=== PATIENT | female | born 1975 | race Caucasian/White ===

== ENCOUNTER → 2017-02-04 | Outpatient (CLI) | payer OTHER ==
--- NOTE | 2017-02-05 14:35 | MM ---
Reason for exam: screening (asymptomatic). Last mammogram was performed 3 years and 10 months ago. Physical Findings: A clinical breast exam by your physician is recommended on an annual basis and results should be correlated with mammographic findings. MG 3D Screening Mammo W/Cad Bilateral CC and MLO view(s) were taken. Prior study comparison: March 29, 2013, bilateral digital screening mammo w/CAD. March 24, 2012, bilateral digital screening mammo w/CAD. There are scattered fibroglandular densities. There is chronic nodularity in the right breast. Developing asymmetry in the left breast middle position at 12 o'clock. This finding is changed when compared with previous exams. ASSESSMENT: Incomplete: need additional imaging evaluation, BI-RAD 0 RECOMMENDATION: Special view mammogram of the left breast. If lesion persists on supplemental views, image directed ultrasound is recommended. [facility] will attempt to contact patient to return for supplemental views and ultrasound if indicated.
== END | disposition home or self-care (01) ==
LOC: RADMAMWWP 13:21
PROVIDERS: ATTEND Internal Medicine
DX: Z12.31 Encounter for screening mammogram for malignant neoplasm of breast (principal)
CPT/HCPCS: 77063; G0202

== ENCOUNTER → 2017-08-05 | Outpatient (CLI) | payer OTHER ==
--- NOTE | 2017-08-06 10:53 | MM ---
Reason for exam: additional evaluation requested from prior study. Last mammogram was performed 6 months ago. History: Took hormonal contraceptives for 6 months. Physical Findings: Nurse did not find any significant physical abnormalities on exam. MG 3D Diag Mammo W/Cad LT CC and MLO view(s) were taken of the left breast. Prior study comparison: February 17, 2017, left breast MG 3d work up w/cad LT. February 04, 2017, bilateral MG 3d screening mammo w/cad. There are scattered fibroglandular densities. Focal asymmetry left middle 12 o'clock, stable from 01/2017. No significant new findings when compared with previous films. These results were verbally communicated with the patient and result sheet given to the patient on 08/05/17. ASSESSMENT: Benign, BI-RAD 2 RECOMMENDATION: Return to routine screening mammogram schedule for both breasts. Back on schedule for January 2018.
== END | disposition home or self-care (01) ==
LOC: RADMAMWWP 15:13
PROVIDERS: ATTEND Internal Medicine
DX: R92.8 Other abnormal and inconclusive findings on diagnostic imaging of breast (principal)
CPT/HCPCS: 77065; G0279

== ENCOUNTER 2018-06-24 05:47 | Emergency (ER) | payer OTHER ==
[2018-06-24 06:14] VITALS: RESP 18; TEMP 98.3
[2018-06-24] MEDS ORDERED: HYDROcodone/APAP 5-325MG 1 EACH TAB PO STA (07:20)
--- NOTE | 2018-06-24 07:30 | ED ---
Fall HPI - General Chief Complaint: Fall Stated Complaint: Fall Source: patient, RN notes reviewed Mode of arrival: ambulatory Limitations: no limitations - History of Present Illness Initial Comments: 42-year-old female presents emergency Department chief complaint of fall, facial injury. Patient states she missed the last step going down the steps and fell into her door. Patient lives nasal and facial pain. No loss of consciousness has mild headache currently. Denies any neck pain or any extremity injury no difficult walking. She did have some mild bleeding of her nose which has resolved. No blood thinners. Patient denies any dizziness, difficult to ambulate in. Patient offers no other complaints. - Related Data Home Medications Medication Instructions Recorded Confirmed Atorvastatin [Lipitor] 80 mg PO HS 06/25/15 06/24/18 Desvenlafaxine Succinate [Pristiq] 100 mg PO HS 06/25/15 06/24/18 Omeprazole 20 mg PO BID 06/25/15 06/24/18 Ibuprofen [Motrin] 800 mg PO Q8H PRN 12/23/16 06/24/18 clonazePAM [KlonoPIN] 1 mg PO HS 12/23/16 06/24/18 Carvedilol 18.75 mg PO BID 06/24/18 06/24/18 Insulin Glargine,Hum.rec.anlog 65 unit SQ HS 06/24/18 06/24/18 [Basaglar Kwikpen U-100] Sacubitril/Valsartan [Entresto 24 1 tab PO BID 06/24/18 06/24/18 mg-26 mg Tablet] Spironolactone 75 mg PO DAILY 06/24/18 06/24/18 sitaGLIPtin PHOS/metFORMIN HCL 1 tab PO BID-W/MEALS 06/24/18 06/24/18 [Janumet 50-500 mg Tablet] Allergies Allergy/AdvReac Type Severity Reaction Status Date / Time codeine AdvReac Nausea & Verified 06/24/18 07:42 Vomiting quetiapine [From Seroquel] AdvReac "SLEEP Verified 06/24/18 07:42 EATING" risperidone [From Risperdal] AdvReac Hallucinati Verified 06/24/18 07:42 ons Review of Systems ROS Statement: Those systems with pertinent positive or pertinent negative responses have been documented in the HPI. ROS Other: All systems not noted in ROS Statement are negative. Past Medical History Past Medical History: Diabetes Mellitus, Hyperlipidemia, Hypertension Additional Past Medical History / Comment(s): Nonischemic cardiomyopathy most likely related to previous illicit drug use and alcohol abuse. History of Any Multi-Drug Resistant Organisms: None Reported Past Surgical History: Section, Cholecystectomy, Orthopedic Surgery, Tubal Ligation Additional Past Surgical History / Comment(s): Novasure Past Psychological History: Bipolar Smoking Status: Former smoker Past Alcohol Use History: None Reported Past Drug Use History: None Reported - Past Family History Father Family Medical History: Diabetes Mellitus Additional Family Medical History / Comment(s): Father in his 60s from renal cancer with metastatic disease. He also had history of schizophrenia and diabetes. Mother Additional Family Medical History / Comment(s): Mother is alive at age 66 with history of diabetes and asthma. Sister(s) Additional Family Medical History / Comment(s): Patient has 2 sisters and one has history of bipolar disorder. Patient does not have any brothers. Son(s) Additional Family Medical History / Comment(s): Patient has 2 sons and one has ADHD and asthma. Patient has one daughter with no major medical problems. General Exam Limitations: no limitations General appearance: alert, in no apparent distress Head exam: Present: atraumatic, normocephalic, normal inspection Eye exam: Present: normal appearance, PERRL, EOMI, periorbital tenderness. Absent: scleral icterus, conjunctival injection, periorbital swelling ENT exam: Present: normal oropharynx, mucous membranes moist, TM's normal bilaterally, normal external ear exam. Absent: normal exam (Swelling of the nostril, mild dry blood noted no active bleeding no septal hematoma) Neck exam: Present: normal inspection, full ROM. Absent: tenderness, meningismus, lymphadenopathy Respiratory exam: Present: normal lung sounds bilaterally. Absent: respiratory distress, wheezes, rales, rhonchi, stridor Cardiovascular Exam: Present: regular rate, normal rhythm, normal heart sounds. Absent: systolic murmur, diastolic murmur, rubs, gallop, clicks GI/Abdominal exam: Present: soft, normal bowel sounds. Absent: distended, tenderness, guarding, rebound, rigid Extremities exam: Present: normal inspection, full ROM, normal capillary refill. Absent: tenderness, pedal edema, joint swelling, calf tenderness Back exam: Present: full ROM. Absent: tenderness, paraspinal tenderness, vertebral tenderness Neurological exam: Present: alert, oriented X3, CN II-XII intact, reflexes normal. Absent: motor sensory deficit Skin exam: Present: warm, dry, intact, normal color. Absent: rash Course Vital Signs 06/24/18 06:11 Temperature 98.3 F Pulse Rate 81 Respiratory 18 Rate Blood Pressure 123/76 O2 Sat by Pulse 98 Oximetry Medical Decision Making - Medical Decision Making 42-year-old female presented for a fall, facial injury CT of the head, facial bones were obtained no acute fracture. Patient will be discharged advised to continue ice Tylenol and Motrin. Return parameters were discussed. Disposition Clinical Impression: Fall, Facial contusion Disposition: HOME SELF-CARE Condition: Stable Instructions (If sedation given, give patient instructions): Facial Contusion (ED) Additional Instructions: Please return to the Emergency Department if symptoms worsen or any other concerns. Is patient prescribed a controlled substance at d/c from ED?: No Referrals: Krystal Duvall MD [Primary Care Provider] - 1-2 days Time of Disposition: 08:21
--- NOTE | 2018-06-24 08:12 | CT ---
EXAMINATION TYPE: CT facial bones wo con DATE OF EXAM: 06/24/2018 COMPARISON: None HISTORY: fall, nose and bilateral cheek pain CT DLP: dose with brain scan mGycm Automated exposure control for dose reduction was used. TECHNIQUE: CT scan of the sinuses is performed without contrast, axial images are obtained, coronal r eformatted images are also reviewed. FINDINGS: There is mild mucosal thickening within the left maxillary sinus. The remaining paranasal s inuses are well aerated. Small left and moderate right maximino bullosa are noted. The maxillary spine appears intact. The nasal bone also appears intact. The bony orbits are intact as well as the visuali zed calvarium and zygomatic processes. No soft tissue hematoma is identified. Mild soft tissue swelli ng and contusion is seen over the inferior nasal bridge. Extraconal muscles and orbits are symmetric and unremarkable. IMPRESSION: No evidence of facial bone fracture. Mild soft tissue contusion over the inferior nasal b ridge.
--- NOTE | 2018-06-24 08:13 | CT ---
EXAMINATION TYPE: CT brain wo con DATE OF EXAM: 06/24/2018 COMPARISON: 03/10/2013 HISTORY: 42-year-old female Nose and bilateral cheek pain, fall TECHNIQUE: Examination was done in axial plane without intravenous contrast. Coronal and sagittal r econstructions performed. CT DLP: 964.9 mGycm Automated exposure control for dose reduction was used. FINDINGS: Mild calvarial artifacts. Allowing for this limitation, there is no evidence of acute intracranial h emorrhage, acute ischemic changes, mass, mass-effect, or extra-axial fluid collection. There is no e ffacement of cerebral sulci or basal subarachnoid cisterns. There is no hydrocephalus. There is no midline shift. López-white matter distinction is preserved. Trace mucosal thickening left maxillary sinus. Mastoid air cells well pneumatized. Facial bones repor manpreet separately. No calvarial fracture. IMPRESSION: No acute intracranial abnormality seen. Facial bones reported separately.
[2018-06-24 08:48] VITALS: BP 131/77; PULSE 78
== END 2018-06-24 08:45 | disposition home or self-care (01) ==
LOC: EC 05:47
DX: S00.83XA Contusion of other part of head, initial encounter (principal); E11.9 Type 2 diabetes mellitus without complications; E78.5 Hyperlipidemia, unspecified; I10 Essential (primary) hypertension; F31.9 Bipolar disorder, unspecified; Z87.891 Personal history of nicotine dependence; Z79.4 Long term (current) use of insulin; Z79.899 Other long term (current) drug therapy; Z88.5 Allergy status to narcotic agent; Z88.8 Allergy status to other drugs, medicaments and biological substances; W10.9XXA Fall (on) (from) unspecified stairs and steps, initial encounter; Y92.009 Unspecified place in unspecified non-institutional (private) residence as the place of occurrence of the external cause
CPT/HCPCS: 70450; 70486; 99283

== ENCOUNTER → 2018-10-22 | Outpatient (CLI) | payer OTHER ==
--- NOTE | 2018-10-22 14:32 | US ---
EXAMINATION TYPE: US pelvic complete DATE OF EXAM: 10/22/2018 COMPARISON: US 04/12/2015 CLINICAL HISTORY: N92.0 Menorrhagia. History of ablasion 2016 TECHNIQUE: Transvaginal (TV) and Transabdominal (TA) . Transabdominal sonographic images of the pel vis were acquired. Transvaginal sonographic images were medically necessary to better assess the fol lowing anatomy: all Date of LMP: 09/27/2018 EXAM MEASUREMENTS: Uterus: 9.2 x 5.3 x 4.8 cm Endometrial Stripe: 0.2 cm Right Ovary: 1.9 x 1.7 x1.1 cm Left Ovary: 1.3 x 1.2 x 1.2 cm 1. Uterus: Anteverted Heterogeneous texture. Nabothian cyst = 0.5 cm 2. Endometrium: wnl 3. Right Ovary: wnl 4. Left Ovary: wnl 5. Bilateral Adnexa: wnl 6. Posterior cul-de-sac: wnl IMPRESSION: Nonspecific heterogenous echotexture of the uterine myometrium. Otherwise unremarkable study.
== END | disposition home or self-care (01) ==
LOC: RADUSWWP 12:09
PROVIDERS: ATTEND Obstetrics & Gynecology
DX: N92.0 Excessive and frequent menstruation with regular cycle (principal)
CPT/HCPCS: 76830; 76856

== ENCOUNTER 2018-10-29 09:07 | Inpatient (IN) | payer OTHER ==
[2018-10-29] MEDS ORDERED: ASPIRIN 81 MG PO STA (09:25)
[2018-10-29] MEDS ORDERED: NITROGLYCERIN SL TABS 0.4 MG TAB SUBLINGUAL STA (09:25)
[2018-10-29 09:38] LABS: Basophils % (A) 0 %; Eosinophils # (A) 0.2 k/uL (0-0.7); Eosinophils % (A) 3 %; HCT 40.3 % (34.0-46.0); HGB 13.7 gm/dL (11.4-16.0); Lymphocytes # (A) 2.5 k/uL (1.0-4.8); Lymphocytes % (A) 33 %; MCH 30.9 pg (25.0-35.0); MCV 90.8 fL (80.0-100.0); Mean Platelet Volume 7.9; Monocytes # (A) 0.3 k/uL (0-1.0); Monocytes % (A) 4 %; Neutrophils # (A) 4.5 k/uL (1.3-7.7); Neutrophils % (A) 58 %; Platelet Count 223 k/uL (150-450); RBC 4.44 m/uL (3.80-5.40); RDW 12.8 % (11.5-15.5); WBC 7.7 k/uL (3.8-10.6)
[2018-10-29 09:50] LABS: African American GFR (CKD) >90 (>60 ml/min/1.73 sqM); Anion Gap 12 mmol/L; Blood Urea Nitrogen 18 mg/dL (7-17); Calcium 9.9 mg/dL (8.4-10.2); Carbon Dioxide 24 mmol/L (22-30); Chloride 105 mmol/L (98-107); Creatine Kinase 93 U/L (30-135); Glucose 88 mg/dL (74-99); Lipase 225 U/L (23-300); Sodium 141 mmol/L (137-145); Total Bilirubin 0.8 mg/dL (0.2-1.3)
[2018-10-29 09:54] LABS: Potassium 5.1 mmol/L (3.5-5.1)
[2018-10-29 09:55] LABS: ALT 33 U/L (9-52); AST 38 U/L (14-36); Albumin 4.7 g/dL (3.5-5.0); Alkaline Phosphatase 61 U/L (38-126); Magnesium 1.4 mg/dL (1.6-2.3); Total Protein 7.9 g/dL (6.3-8.2)
--- NOTE | 2018-10-29 10:01 | XR ---
EXAMINATION TYPE: XR chest 2V DATE OF EXAM: 10/29/2018 COMPARISON: 12/23/2016 TECHNIQUE: PA and lateral views submitted. HISTORY: Chest pain FINDINGS: The lungs are clear and there is no pneumothorax, pleural effusion, or focal pneumonia. Hypertrophic change of the spine. Surgical clips in the abdomen. IMPRESSION: 1. No acute process.
--- NOTE | 2018-10-29 10:14 | ED ---
Chest Pain HPI - General Chief Complaint: Chest Pain Stated Complaint: chest pressure/pounding Time Seen by Provider: 10/29/18 09:17 Source: patient, RN notes reviewed Mode of arrival: ambulatory Limitations: no limitations - History of Present Illness Initial Comments: Is a 42-year-old female with a history of cardiomyopathy who presents with complaints of left-sided chest heaviness. She states the heaviness is also associated with fatigue [id number] in severity. Associated with any cough fevers chills nausea vomiting sweats or other symptoms. She does have a history of hypertension as well as type 2 diabetes. Also high cholesterol. MD Complaint: chest pain - Related Data Home Medications Medication Instructions Recorded Confirmed Atorvastatin [Lipitor] 80 mg PO HS 06/25/15 10/29/18 Desvenlafaxine Succinate [Pristiq] 100 mg PO HS 06/25/15 10/29/18 Omeprazole 20 mg PO BID 06/25/15 10/29/18 clonazePAM [KlonoPIN] 1 mg PO HS 12/23/16 10/29/18 Carvedilol 18.75 mg PO BID 06/24/18 10/29/18 Insulin Glargine,Hum.rec.anlog 65 unit SQ HS 06/24/18 10/29/18 [Basaglar Kwikpen U-100] Sacubitril/Valsartan [Entresto 24 1 tab PO BID 06/24/18 10/29/18 mg-26 mg Tablet] Spironolactone 75 mg PO DAILY 06/24/18 10/29/18 sitaGLIPtin PHOS/metFORMIN HCL 1 tab PO BID-W/MEALS 06/24/18 10/29/18 [Janumet 50-500 mg Tablet] Cholecalciferol [Vitamin D3 (25 5,000 unit PO DAILY 10/29/18 10/29/18 Mcg = 1000 Iu)] Magnesium Oxide [Mag-Ox] 400 mg PO DAILY 10/29/18 10/29/18 Melatonin 5 mg PO HS 10/29/18 10/29/18 Allergies Allergy/AdvReac Type Severity Reaction Status Date / Time codeine AdvReac Nausea & Verified 10/29/18 09:45 Vomiting quetiapine [From Seroquel] AdvReac "SLEEP Verified 10/29/18 09:45 EATING" risperidone [From Risperdal] AdvReac Hallucinati Verified 10/29/18 09:45 ons Review of Systems ROS Statement: Those systems with pertinent positive or pertinent negative responses have been documented in the HPI. ROS Other: All systems not noted in ROS Statement are negative. EKG Findings - EKG Results: EKG: interpreted by SAVANNA, sinus rhythm (Sinus rhythm rate is 72 ND interval 238 QRS duration 118 QT since QTC 414/453 for prescription AV block frequent unifocal PVCs left ice deviation and LVH) Past Medical History Past Medical History: Diabetes Mellitus, Hyperlipidemia, Hypertension Additional Past Medical History / Comment(s): Nonischemic cardiomyopathy most likely related to previous illicit drug use and alcohol abuse. History of Any Multi-Drug Resistant Organisms: None Reported Past Surgical History: Section, Cholecystectomy, Orthopedic Surgery, Tubal Ligation, Uterine Ablation Additional Past Surgical History / Comment(s): Novasure Past Psychological History: Bipolar Smoking Status: Former smoker Past Alcohol Use History: None Reported Past Drug Use History: None Reported, Cocaine, Marijuana, Opiates, Prescription Drug Abuse - Past Family History Father Family Medical History: Diabetes Mellitus Additional Family Medical History / Comment(s): Father in his 60s from renal cancer with metastatic disease. He also had history of schizophrenia and diabetes. Mother Additional Family Medical History / Comment(s): Mother is alive at age 66 with history of diabetes and asthma. Sister(s) Additional Family Medical History / Comment(s): Patient has 2 sisters and one has history of bipolar disorder. Patient does not have any brothers. Son(s) Additional Family Medical History / Comment(s): Patient has 2 sons and one has ADHD and asthma. Patient has one daughter with no major medical problems. General Exam - General Exam Comments Initial Comments: This is a well-developed well-nourished awake alert oriented 3 female Limitations: no limitations General appearance: alert, in no apparent distress Head exam: Present: atraumatic, normocephalic, normal inspection Eye exam: Present: normal appearance, PERRL, EOMI. Absent: scleral icterus, conjunctival injection, periorbital swelling ENT exam: Present: normal exam, mucous membranes moist Neck exam: Present: normal inspection, full ROM, other (No stridor JVD or bruits). Absent: tenderness, meningismus, lymphadenopathy Respiratory exam: Present: normal lung sounds bilaterally. Absent: respiratory distress, wheezes, rales, rhonchi, stridor Cardiovascular Exam: Present: regular rate, normal rhythm, normal heart sounds. Absent: systolic murmur, diastolic murmur, rubs, gallop, clicks GI/Abdominal exam: Present: soft, normal bowel sounds. Absent: distended, tenderness, guarding, rebound, rigid Extremities exam: Present: normal inspection, full ROM, normal capillary refill. Absent: tenderness, pedal edema, joint swelling, calf tenderness Back exam: Present: normal inspection Neurological exam: Present: alert, oriented X3, CN II-XII intact Psychiatric exam: Present: normal affect, normal mood Skin exam: Present: warm, dry, intact, normal color. Absent: rash Course Vital Signs 10/29/18 10/29/18 10/29/18 09:10 09:30 10:00 Temperature 97.6 F Pulse Rate 75 80 80 Respiratory 18 21 24 Rate Blood Pressure 134/85 110/82 105/63 O2 Sat by Pulse 97 96 97 Oximetry 10/29/18 10/29/18 10/29/18 10:30 11:00 11:30 Temperature Pulse Rate 71 74 75 Respiratory 13 16 24 Rate Blood Pressure 98/52 101/64 92/58 O2 Sat by Pulse 99 100 100 Oximetry - Reevaluation(s) Reevaluation #1: 10/29/18 11:58 Patient states she did not get much relief from nitroglycerin at this point. I did review the previous cath report. Patient does demonstrate unifocal PVCs and hypomagnesemia. Due to the presentation she'll be admitted with cardiology consultation. Chest Pain MDM - MDM I did review the imaging and report no acute findings. I did discuss case with . Patient will be admitted for evaluation. Critical Care Time Critical Care Time: Yes Critical Care Time: 31 minutes of critical care time which includesinitial history physical labs x- rays multiple reevaluation patient responsive therapy discuss with the patient regarding findings discussed with the admitting physician review of old charting and documentation of the above Disposition Clinical Impression: Chest pain, PVCs (premature ventricular contractions), Hypomagnesemia syndrome Disposition: ADMITTED IP TO THIS [facility] Condition: Stable [facility]errals: [facility] [Primary Care Provider] - 1-2 days
[2018-10-29 10:45] LABS: D-Dimer 0.2 mg/L FEU (<0.60); INR 0.9 (<1.2); Partial Thromboplastin Time 24.2 sec (22.0-30.0); Prothrombin Time 9.8 sec (9.0-12.0)
[2018-10-29] MEDS ORDERED: MAGNESIUM SULFATE-D5W PMX 1 GM in DEXTROSE/WATER 1 100ML.BAG IVPB ONE (11:22)
[2018-10-29] MEDS ORDERED: NITROGLYCERIN SL TABS 0.4 MG TAB SUBLINGUAL PRN (12:01)
[2018-10-29] MEDS ORDERED: HEPARIN SODIUM,PORCINE 5,000 UNIT/ML 1 ML VIAL IV ONE (12:01)
[2018-10-29] MEDS: HEPARIN SOD,PORK IN 0.45% NACL 25,000 UNIT in 0.45% NACL 1 250ML.BAG IV SCH (12:26)
[2018-10-29] MEDS: INSULIN ASPART (NovoLOG) 100 UNIT/ML VIAL SQ SCH ×3 (12:53→21:42)
[2018-10-29 13:01] LABS: Glucose,Whole Blood 76 mg/dL (75-99)
--- NOTE | 2018-10-29 13:46 | P.HPIM ---
History of Present Illness H&P Date: 10/29/18 This is a 42-year-old white female who reported emergency because of chest pounding. She has been feeling fatigued and tired. She denies chest pain. Her symptoms woke her up from sleep. Her symptoms have been intermittent. This has happened to her about a year ago when she was found to have cardiomyopathy. She denies subjective fever or chills, she reports no dizziness or loss of consciousness. She denies excessive use of caffeine or alcohol. Review of Systems 10 systems reviewed pertinent positive and negative findings as in HPI Past Medical History Past Medical History: Diabetes Mellitus, Hyperlipidemia, Hypertension Additional Past Medical History / Comment(s): Nonischemic cardiomyopathy most likely related to previous illicit drug use and alcohol abuse. History of Any Multi-Drug Resistant Organisms: None Reported Past Surgical History: Section, Cholecystectomy, Orthopedic Surgery, Tubal Ligation, Uterine Ablation Additional Past Surgical History / Comment(s): Neris Past Psychological History: Bipolar Smoking Status: Former smoker Past Alcohol Use History: None Reported Past Drug Use History: None Reported, Cocaine, Marijuana, Opiates, Prescription Drug Abuse - Past Family History Father Family Medical History: Diabetes Mellitus Additional Family Medical History / Comment(s): Father in his 60s from dolly l cancer with metastatic disease. He also had history of schizophrenia and diabetes. Mother Additional Family Medical History / Comment(s): Mother is alive at age 66 with history of diabetes and asthma. Sister(s) Additional Family Medical History / Comment(s): Patient has 2 sisters and one has history of bipolar disorder. Patient does not have any brothers. Son(s) Additional Family Medical History / Comment(s): Patient has 2 sons and one has ADHD and asthma. Patient has one daughter with no major medical problems. Medications and Allergies Home Medications Medication Instructions Recorded Confirmed Type Atorvastatin [Lipitor] 80 mg PO HS 06/25/15 10/29/18 History Desvenlafaxine Succinate [Pristiq] 100 mg PO HS 06/25/15 10/29/18 History Omeprazole 20 mg PO BID 06/25/15 10/29/18 History clonazePAM [KlonoPIN] 1 mg PO HS 12/23/16 10/29/18 History Carvedilol 18.75 mg PO BID 06/24/18 10/29/18 History Insulin Glargine,Hum.rec.anlog 65 unit SQ HS 06/24/18 10/29/18 History [Basaglar Kwmadhavipen U-100] Sacubitril/Valsartan [Entresto 24 1 tab PO BID 06/24/18 10/29/18 History mg-26 mg Tablet] Spironolactone 75 mg PO DAILY 06/24/18 10/29/18 History sitaGLIPtin PHOS/metFORMIN HCL 1 tab PO BID-W/MEALS 06/24/18 10/29/18 History [Janumet 50-500 mg Tablet] Cholecalciferol [Vitamin D3 (25 5,000 unit PO DAILY 10/29/18 10/29/18 History Mcg = 1000 Iu)] Magnesium Oxide [Mag-Ox] 400 mg PO DAILY 10/29/18 10/29/18 History Melatonin 5 mg PO HS 10/29/18 10/29/18 History Allergies Allergy/AdvReac Type Severity Reaction Status Date / Time codeine AdvReac Nausea & Verified 10/29/18 09:45 Vomiting quetiapine [From Seroquel] AdvReac "SLEEP Verified 10/29/18 09:45 EATING" risperidone [From Risperdal] AdvReac Hallucinati Verified 10/29/18 09:45 ons Physical Exam Vitals: Vital Signs Temp Pulse Resp BP Pulse Ox 10/29/18 12:30 71 10 L 97/54 98 10/29/18 11:30 75 24 92/58 100 10/29/18 11:00 74 16 101/64 100 10/29/18 10:30 71 13 98/52 99 10/29/18 10:00 80 24 105/63 97 10/29/18 09:30 80 21 110/82 96 10/29/18 09:10 97.6 F 75 18 134/85 97 Intake and Output 10/28/18 10/29/18 10/29/18 22:59 06:59 14:59 Other: Weight 117.934 kg Constitutional: No acute distress, conversant, pleasant obese Eyes: Anicteric sclerae, moist conjunctiva, no lid-lag, PERRLA ENMT: NC/AT,Oropharynx clear, no erythema, exudates Neck:Supple, FROM, no JVD, No carotid bruits; No thyromegaly Lungs: Clear to auscultation, Clear to percussion, Normal respiratory effort, no accessory muscle use Cardiovascular: Heart regular in rate and rhythm, No murmurs, gallops, or rubs no peripheral edema Abdominal: Soft Nontender, nom distended, no guarding, no rebound or rigidity, Normoactive bowel sounds No hepatomegaly, No splenomegaly, No palpable mass No abdominal wall hernia noted Skin: Normal temperature, tone, texture, turgor, No induration No subcutaneous nodules, No rash, lesions, No ulcers Extremities:No digital cyanosis No clubbing, Pedal pulses intact and symmetrical Radial pulses intact and symmetrical Normal gait and station, No calf tenderness Psychiatric: Alert and oriented to person, place and time, Appropriate affect Intact judgement Neuro: Muscles Strength 5/5 in all 4 extremities, Sensation to light touch grossly present throughout, Cranial nerves II-XII grossly intact. No focal sensory deficits Results CBC & Chem 7: 10/29/18 09:30 10/29/18 09:30 Labs: Abnormal Lab Results - Last 24 Hours (Table) 10/29/18 Range/Units 09:30 BUN 18 H (7-17) mg/dL Magnesium 1.4 L (1.6-2.3) mg/dL AST 38 H (14-36) U/L Assessment and Plan Plan: 1. PVCs: Telemetry, cardiology consultation, continue to check cardiac enzymes, negative d-dimer. 2. Hypomagnesemia, replace as indicated 3. Congestive heart failure with ischemic cardiomyopathy, chronic systolic ejection fraction 35%: Continue on Aldactone continue aspirin and Lipitor and Coreg. 4. Diabetes type 2 with hyperglycemia: Placed on insulin sliding scale 5. GERD without esophagitis: Continue Protonix 6. Obesity, morbid: BMI 43.3 7. Hyperlipidemia: Continue statin 8. Anxiety: Continue Klonopin 9. Depression: Continue Pristiq 10. DVT prophylaxis Admitted under observation
[2018-10-29 13:57] VITALS: BMI 43.2
[2018-10-29 16:29] LABS: Glucose,Whole Blood 143 mg/dL (75-99)
[2018-10-29] MEDS: PANTOPRAZOLE 40 MG TABLET PO SCH (17:20)
[2018-10-29] MEDS: CARVEDILOL 12.5 MG TAB PO SCH (17:20)
[2018-10-29] MEDS: NITROGLYCERIN OINT 1 INCH/GM PACKET TOPICAL SCH (17:20)
[2018-10-29] MEDS ORDERED: metFORMIN 500 MG TAB PO SCH (17:30)
[2018-10-29] MEDS ORDERED: NON-FORMULARY DRUG (Sitagliptin Phos/Metformin Hcl [Janumet 50-500 Mg Tablet] 1 TAB) PO SCH (17:30)
[2018-10-29 20:54] VITALS: RESP 16
[2018-10-29] MEDS ORDERED: INSULIN DETEMIR (LEVEMIR) 100 UNIT/ML SYR SQ SCH (21:00)
[2018-10-29] MEDS ORDERED: clonazePAM 1 MG TAB PO SCH (21:00)
[2018-10-29] MEDS ORDERED: MELATONIN 5 MG TABLET PO SCH (21:00)
[2018-10-29] MEDS ORDERED: ATORVASTATIN 80 MG TAB PO SCH (21:00)
[2018-10-29] MEDS ORDERED: DESVENLAFAXINE SUCCINATE 50 MG TAB.ER.24H PO SCH (21:00)
[2018-10-29 21:06] LABS: Glucose,Whole Blood 117 mg/dL (75-99)
[2018-10-29] MEDS: SACUBITRIL/VALSARTAN 24 MG-26 MG TABLET PO SCH (21:42)
[2018-10-30] MEDS: NITROGLYCERIN OINT 1 INCH/GM PACKET TOPICAL SCH ×2 (00:23→07:00)
[2018-10-30 04:22] LABS: Glucose,Whole Blood 132 mg/dL (75-99)
[2018-10-30] MEDS: HEPARIN SOD,PORK IN 0.45% NACL 25,000 UNIT in 0.45% NACL 1 250ML.BAG IV SCH (05:43)
[2018-10-30 06:26] LABS: Basophils % (A) 1 %; Eosinophils # (A) 0.2 k/uL (0-0.7); Eosinophils % (A) 3 %; HCT 37.2 % (34.0-46.0); HGB 12.4 gm/dL (11.4-16.0); Lymphocytes # (A) 2.3 k/uL (1.0-4.8); Lymphocytes % (A) 38 %; MCH 30.6 pg (25.0-35.0); MCHC 33.5 g/dL (31.0-37.0); MCV 91.4 fL (80.0-100.0); Mean Platelet Volume 7.6; Monocytes # (A) 0.3 k/uL (0-1.0); Monocytes % (A) 5 %; Neutrophils # (A) 3.1 k/uL (1.3-7.7); Neutrophils % (A) 51 %; Platelet Count 190 k/uL (150-450); RBC 4.07 m/uL (3.80-5.40); RDW 13.7 % (11.5-15.5); WBC 6.1 k/uL (3.8-10.6)
[2018-10-30 06:50] LABS: Glucose,Whole Blood 105 mg/dL (75-99)
[2018-10-30] MEDS: PANTOPRAZOLE 40 MG TABLET PO SCH (07:00)
[2018-10-30] MEDS: INSULIN ASPART (NovoLOG) 100 UNIT/ML VIAL SQ SCH ×2 (07:00→11:43)
[2018-10-30] MEDS: CARVEDILOL 12.5 MG TAB PO SCH (07:00)
[2018-10-30 08:03] LABS: ALT 38 U/L (9-52); AST 28 U/L (14-36); African American GFR (CKD) >90 (>60 ml/min/1.73 sqM); Albumin 4.1 g/dL (3.5-5.0); Alkaline Phosphatase 70 U/L (38-126); Anion Gap 10 mmol/L; Blood Urea Nitrogen 16 mg/dL (7-17); Calcium 8.9 mg/dL (8.4-10.2); Carbon Dioxide 27 mmol/L (22-30); Chloride 104 mmol/L (98-107); Cholesterol 165 mg/dL (<200); Glucose 125 mg/dL (74-99); HDL Cholesterol 65 mg/dL (40-60); LDL Cholesterol,Calculated 60 mg/dL (0-99); Potassium 4.2 mmol/L (3.5-5.1); Sodium 141 mmol/L (137-145); Total Bilirubin 0.6 mg/dL (0.2-1.3); Total Protein 6.8 g/dL (6.3-8.2); Triglycerides 200 mg/dL (<150)
[2018-10-30] MEDS ORDERED: MAGNESIUM OXIDE 400 MG TAB PO SCH (09:00)
[2018-10-30] MEDS ORDERED: CHOLECALCIFEROL 1,000 UNIT TAB PO SCH (09:00)
[2018-10-30] MEDS ORDERED: SPIRONOLACTONE 25 MG TAB PO SCH (09:00)
[2018-10-30] MEDS ORDERED: ASPIRIN 325 MG TAB PO SCH (09:00)
[2018-10-30] MEDS ORDERED: LINAGLIPTIN 5 MG TABLET PO SCH (09:00)
--- NOTE | 2018-10-30 09:29 | P.CRDCN ---
History of Present Illness Consult date: 10/30/18 History of present illness: This is a 42-year-old female patient of Dr. Hennessy in with complex medical history including nonischemic cardiomyopathy secondary to prior drug abuse, diabetes, hypertension, dyslipidemia and frequent ventricular ectopy. The patient denies any recent medication changes and has been taking her medication and instructed. She states she has been doing quite well and is active including working and mowing lawn and etc. 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 Patient does state that she had fatigue prior to this happening and thought it was related to low magnesium. Patient does relate that she has had a uterine ablation in 2016 and has had some unusual bleeding lasted 15 days. She did have follow-up with Dr. Lim and ultrasound of the pelvic has been done and she does not know results yet. Patient is currently free of chest pain. She does not know what relieved her pain. Systolic blood pressure this morning is at 80 and Nitropaste and Entresto held. secured entrance monitor has been a sinus rhythm with first-degree block through the night. Patient is currently on a heparin drip. She states that her systolic blood pressure normally runs 90-110. She is complaining of a slight headache. EKG reveals sinus mechanism with PVCs and inverted T wave. Echocardiogram from 2017 reveals EF of 35-40%, trace mitral regurgitation, trace tricuspid regurgitation, no pulmonary hypertension, mild left concentric left ventricular hypertrophy, aortic valve and mitral valve mildly thickened, technically difficult study. Laboratory studies: CBC unremarkable, blood sugar 125, triglycerides 200, cholesterol 165, LDL 60, HDL 65. Heart catheterization done December [address] Otero revealed normal coronary arteries. Review of Systems Constitutional: Denies chills. Denies fever. Reports generalized fatigue Eyes: Denies blurred vision. Denies pain. Ears, nose, mouth and throat: Denies headache. Denies sore throat. Cardiovascular: Reports chest pain. Denies shortness of breath. Respiratory: Denies cough. Gastrointestinal: Denies abdominal pain. Denies diarrhea. Denies nausea. Denies vomiting. Musculoskeletal: Denies myalgias. Integumentary: Denies pruritus. Denies rash. Neurological: Denies numbness. Denies weakness. Psychiatric: Denies anxiety. Denies depression. Endocrine: Denies fatigue. Denies weight change. Genitourinary: Denies burning, hematuria, frequency of urination. Hematological: Reports recent abnormal vaginal bleeding. Vital signs: Afebrile, blood pressure 80 systolic, heart rate 66, pulse ox 94% on room air. General: The patient is awake and alert, in no distress, and does not appear acutely ill. Skin: Skin is warm and dry and no rashes or lesions are noted. Eye: Pupils are equal, round and reactive to light, extra-ocular movements are intact; there is normal conjunctiva bilaterally. Ears, nose, mouth and throat: There are moist mucous membranes and no oral lesions. Neck: The neck is supple, there is no tenderness or JVD. Cardiovascular: There is a regular rate and rhythm. No murmur, rub or gallop is appreciated. Respiratory: Lungs are clear to auscultation, respirations are non-labored, breath sounds are equal. Gastrointestinal: Soft, non-distended, non-tender abdomen without masses or organomegaly noted. There is no rebound or guarding present. Bowel sounds are unremarkable. Musculoskeletal: There is no pedal edema. There is no calf tenderness or swelling. Vascular: Dorsalis pedis +2 bilaterally Neurological: CN II-XII intact. There are no obvious motor or sensory deficits. Speech is normal. Psychiatric: Cooperative, appropriate mood & affect, normal judgment. Assessment: Chest pain with normal troponins. Acute coronary syndrome ruled out Nonischemic cardiomyopathy Diabetes mellitus type 2 insulin requiring Hypotensive Plan: Heparin drip will be discontinued Discontinued Nitropaste Continue atorvastatin 80 mg at bedtime Coreg decreased to 12.5 mg twice daily, continue Entresto 24/26 mg twice daily, decrease Aldactone 25 mg daily Obtain 2-D echocardiogram and Doppler to assess cardiac structure and function Patient is cleared for discharge home and follow-up in the office in one week Thank you kindly for this consultation. Nurse practitioner note has been reviewed, I agree with documented findings and plan of care. Patient was seen and examined. Past Medical History Past Medical History: Diabetes Mellitus, GERD/Reflux, Hyperlipidemia, Hypertension Additional Past Medical History / Comment(s): Nonischemic cardiomyopathy most likely related to previous illicit drug use and alcohol abuse, IDDM type II, neuropathy bilateral feet, bilateral carpal tunnel syndrome, IBS. History of Any Multi-Drug Resistant Organisms: None Reported Past Surgical History: Adenoidectomy, Section, Cholecystectomy, Orthopedic Surgery, Tubal Ligation, Uterine Ablation Additional Past Surgical History / Comment(s): Bilateral myringotomy/tubes, colonoscopy. Past Anesthesia/Blood Transfusion Reactions: No Reported Reaction Smoking Status: Former smoker - Past Family History Father Family Medical History: Diabetes Mellitus Additional Family Medical History / Comment(s): Father in his 60s from renal cancer with metastatic disease. He also had history of mental health disease and diabetes. Mother Family Medical History: Asthma, Diabetes Mellitus Additional Family Medical History / Comment(s): Mother is living Sister(s) Additional Family Medical History / Comment(s): Patient has 2 sisters and one has history of bipolar disorder. Patient does not have any brothers. Son(s) Additional Family Medical History / Comment(s): Patient has 2 sons and one has ADHD and asthma. Patient has one daughter with no major medical problems. Medications and Allergies Home Medications Medication Instructions Recorded Confirmed Type Atorvastatin [Lipitor] 80 mg PO HS 06/25/15 10/29/18 History Desvenlafaxine Succinate [Pristiq] 100 mg PO HS 06/25/15 10/29/18 History Omeprazole 20 mg PO BID 06/25/15 10/29/18 History clonazePAM [KlonoPIN] 1 mg PO HS 12/23/16 10/29/18 History Insulin Glargine,Hum.rec.anlog 65 unit SQ HS 06/24/18 10/29/18 History [Liz Hudson U-100] Sacubitril/Valsartan [Entresto 24 1 tab PO BID 06/24/18 10/29/18 History mg-26 mg Tablet] sitaGLIPtin PHOS/metFORMIN HCL 1 tab PO BID-W/MEALS 06/24/18 10/29/18 History [Janumet 50-500 mg Tablet] Cholecalciferol [Vitamin D3 (25 5,000 unit PO DAILY 10/29/18 10/29/18 History Mcg = 1000 Iu)] Magnesium Oxide [Mag-Ox] 400 mg PO DAILY 10/29/18 10/29/18 History Melatonin 5 mg PO HS 10/29/18 10/29/18 History Carvedilol 12.5 mg PO BID #0 10/30/18 10/29/18 Rx Spironolactone 25 mg PO DAILY #0 10/30/18 10/29/18 Rx Allergies Allergy/AdvReac Type Severity Reaction Status Date / Time codeine AdvReac Nausea & Verified 10/29/18 09:45 Vomiting quetiapine [From Seroquel] AdvReac "SLEEP Verified 10/29/18 09:45 EATING" risperidone [From Risperdal] AdvReac Hallucinati Verified 10/29/18 09:45 ons Physical Exam Vitals: Vital Signs Temp Pulse Pulse Resp BP BP BP 10/30/18 07:02 66 102/61 10/30/18 04:10 98.1 F 78 16 102/59 10/30/18 00:20 98.1 F 77 16 98/53 10/29/18 20:20 98.1 F 78 16 111/77 10/29/18 15:10 97.0 F L 70 104/65 10/29/18 14:00 73 18 82/55 10/29/18 13:30 76 26 H 100/67 10/29/18 13:01 79 25 H 87/56 10/29/18 12:30 71 10 L 97/54 10/29/18 11:30 75 24 92/58 10/29/18 11:00 74 16 101/64 10/29/18 10:30 71 13 98/52 10/29/18 10:00 80 24 105/63 10/29/18 09:30 80 21 110/82 10/29/18 09:10 97.6 F 75 18 134/85 Pulse Ox 10/30/18 07:02 10/30/18 04:10 94 L 10/30/18 00:20 97 10/29/18 20:20 97 10/29/18 15:10 99 10/29/18 14:00 98 10/29/18 13:30 98 10/29/18 13:01 97 10/29/18 12:30 98 10/29/18 11:30 100 10/29/18 11:00 100 10/29/18 10:30 99 10/29/18 10:00 97 10/29/18 09:30 96 10/29/18 09:10 97 Intake and Output 07/12/19 07/13/19 07/13/19 22:59 06:59 14:59 Intake Total 240 244.594 Balance 240 244.594 Intake: Intake, IV Titration 244.594 Amount Heparin Sod,Pork in 0.45% 244.594 NaCl 25,000 unit In 0.45 % NaCl 1 250ml.bag @ 12 UNITS/KG/HR 14.152 mls/hr IV .[id number] [facility] Rx#: [id number] Oral 240 Other: Voiding Method Toilet # Voids 1 1 Weight 117.8 kg Results 10/30/18 05:36 10/30/18 05:36 Cardiac Enzymes 10/29/18 10/29/18 10/29/18 Range/Units 09:30 09:30 16:03 AST 38 H (14-36) U/L Troponin I <0.012 <0.012 (0.000-0.034) ng/mL 10/29/18 10/30/18 Range/Units 21:17 05:36 AST 28 (14-36) U/L Troponin I <0.012 (0.000-0.034) ng/mL Coagulation 10/29/18 10/29/18 10/30/18 Range/Units 10:21 22:19 05:29 PT 9.8 (9.0-12.0) sec APTT 24.2 55.7 H 69.7 H (22.0-30.0) sec Lipids 10/30/18 Range/Units 05:36 Triglycerides 200 H (<150) mg/dL Cholesterol 165 (<200) mg/dL HDL Cholesterol 65 H (40-60) mg/dL CBC 10/29/18 10/30/18 Range/Units 09:30 05:36 WBC 7.7 6.1 (3.8-10.6) k/uL RBC 4.44 4.07 (3.80-5.40) m/uL Hgb 13.7 12.4 (11.4-16.0) gm/dL Hct 40.3 37.2 (34.0-46.0) % Plt Count 223 190 (150-450) k/uL Comprehensive Metabolic Panel 10/29/18 10/30/18 Range/Units 09:30 05:36 Sodium 141 141 (137-145) mmol/L Potassium 5.1 4.2 (3.5-5.1) mmol/L Chloride 105 104 (98-107) mmol/L Carbon Dioxide 24 27 (22-30) mmol/L BUN 18 H 16 (7-17) mg/dL Creatinine 0.54 0.60 (0.52-1.04) mg/dL Glucose 88 125 H (74-99) mg/dL Calcium 9.9 8.9 (8.4-10.2) mg/dL AST 38 H 28 (14-36) U/L ALT 33 38 (9-52) U/L Alkaline Phosphatase 61 70 (38-126) U/L Total Protein 7.9 6.8 (6.3-8.2) g/dL Albumin 4.7 4.1 (3.5-5.0) g/dL Current Medications Generic Name Dose Route Start Last Admin Trade Name Freq PRN Reason Stop Dose Admin Aspirin 325 mg 10/30/18 09:00 10/30/18 08:51 Aspirin PO 325 mg DAILY [facility] Administration Atorvastatin Calcium 80 mg 10/29/18 21:00 10/29/18 21:43 Lipitor PO 80 mg HS [facility] Administration Carvedilol 18.75 mg 10/29/18 17:30 10/30/18 07:00 Coreg PO 18.75 mg BID-W/MEALS [facility] Administration Cholecalciferol 5,000 unit 10/30/18 09:00 10/30/18 08:51 Vitamin D3 (25 Mcg = 1000 Iu) PO 5,000 unit DAILY [facility] Administration Clonazepam 1 mg 10/29/18 21:00 10/29/18 21:43 Klonopin PO 1 mg HS [facility] Administration Desvenlafaxine Succinate 100 mg 10/29/18 21:00 10/29/18 21:42 Pristiq Er PO 100 mg HS [facility] Administration Heparin Sodium/Sodium Chloride 250 mls @ 14.152 mls/hr 10/29/18 12:15 10/30/18 05:43 25,000 unit/ Sodium Chloride IV 12 units/kg/hr .[id number] [facility] 14.152 mls/hr Administration Protocol 12 UNITS/KG/HR Insulin Aspart 0 unit 10/29/18 12:30 10/30/18 07:00 Novolog SQ Not Given ACHS [facility] Protocol Insulin Detemir 65 unit 10/29/18 21:00 10/29/18 21:42 Levemir SQ 65 unit HS [facility] Administration Linagliptin 5 mg 10/30/18 09:00 10/30/18 08:51 Tradjenta PO 5 mg DAILY [facility] Administration Magnesium Oxide 400 mg 10/30/18 09:00 10/30/18 08:51 Mag-Ox PO 400 mg DAILY [facility] Administration Melatonin 5 mg 10/29/18 21:00 10/29/18 21:42 Melatonin PO 5 mg HS [facility] Administration Nitroglycerin 1 inch 10/29/18 18:00 10/30/18 07:00 Nitro-Bid Oint TOPICAL 1 inch Q6HR [facility] Administration Nitroglycerin 0.4 mg 10/29/18 12:01 Nitrostat SUBLINGUAL Q5M PRN Chest Pain Pantoprazole Sodium 40 mg 10/29/18 17:30 10/30/18 07:00 Protonix PO 40 mg AC-BID [facility] Administration Sacubitril/Valsartan 1 each 10/29/18 21:00 10/29/18 21:42 Entresto 24 Mg-26 Mg Tablet PO 1 each BID [facility] Administration Spironolactone 75 mg 10/30/18 09:00 10/30/18 08:52 Aldactone PO 75 mg DAILY [facility] Administration Intake and Output 10/29/18 10/30/18 10/30/18 22:59 06:59 14:59 Intake Total 240 244.594 Balance 240 244.594 Intake: Intake, IV Titration 244.594 Amount Heparin Sod,Pork in 0.45% 244.594 NaCl 25,000 unit In 0.45 % NaCl 1 250ml.bag @ 12 UNITS/KG/HR 14.152 mls/hr IV .[id number] [facility] Rx#: [id number] Oral 240 Other: Voiding Method Toilet # Voids 1 1 Weight 117.8 kg 10/30/18 05:36 10/30/18 05:36
--- NOTE | 2018-10-30 11:13 | P.DS ---
Providers Date of admission: 10/29/18 12:01 Attending physician: Delia Ann MD Consults: 10/29/18 12:01 Consult Physician Urgent Consulting Provider: Perfecto Olivia Consult Reason/Comments: Chest pain, PVCs Do you want consulting provider notified?: Yes Primary care physician: [facility] Course: Diagnoses upon discharge: 1. Chest pain likely atypical 2. Nonischemic cardiomyopathy 3. PVCs 4. Hypotension likely associated with medications 5. Diabetes type 2 with hyperglycemia HPI: This is a 42-year-old white female who reported emergency because of chest po unding. She has been feeling fatigued and tired. She denies chest pain. Her symptoms woke her up from sleep. Her symptoms have been intermittent. This has happened to her about a year ago when she was found to have cardiomyopathy. She denies subjective fever or chills, she reports no dizziness or loss of consciousness. She denies excessive use of caffeine or alcohol. Hospital course and treatment: Patient was admitted for observation secondary to chest pressure, she was found to have PVCs. Cardiac enzymes and d-dimer were negative. She had episodes of hypotension, medications were adjusted were Coreg was decreased to 12.5 mg twice a day, Aldactone was decreased to 25 mg daily. Patient was evaluated by cardiology. She was initially started on heparin drip but that was discontin ued. Patient remained hemodynamically stable and will follow up with cardiology as an outpatient. Patient Condition at Discharge: Stable Plan - Discharge Summary Discharge Rx Participant: No New Discharge Prescriptions: Changed Carvedilol 12.5 mg PO BID #0 Spironolactone 25 mg PO DAILY #0 No Action Atorvastatin [Lipitor] 80 mg PO HS Desvenlafaxine Succinate [Pristiq] 100 mg PO HS Omeprazole 20 mg PO BID clonazePAM [KlonoPIN] 1 mg PO HS Insulin Glargine,Hum.rec.anlog [Basaglar Kwikpen U-100] 65 unit SQ HS Sacubitril/Valsartan [Entresto 24 mg-26 mg Tablet] 1 tab PO BID sitaGLIPtin PHOS/metFORMIN HCL [Janumet 50-500 mg Tablet] 1 tab PO BID- W/MEALS Magnesium Oxide [Mag-Ox] 400 mg PO DAILY Cholecalciferol [Vitamin D3 (25 Mcg = 1000 Iu)] 5,000 unit PO DAILY Melatonin 5 mg PO HS Discharge Medication List Atorvastatin [Lipitor] 80 mg PO HS 06/25/15 [History] Desvenlafaxine Succinate [Pristiq] 100 mg PO HS 06/25/15 [History] Omeprazole 20 mg PO BID 06/25/15 [History] clonazePAM [KlonoPIN] 1 mg PO HS 12/23/16 [History] Insulin Glargine,Hum.rec.anlog [Basaglar Kwikpen U-100] 65 unit SQ HS 06/24/18 [History] Sacubitril/Valsartan [Entresto 24 mg-26 mg Tablet] 1 tab PO BID 06/24/18 [History] sitaGLIPtin PHOS/metFORMIN HCL [Janumet 50-500 mg Tablet] 1 tab PO BID-W/MEALS 06/24/18 [History] Cholecalciferol [Vitamin D3 (25 Mcg = 1000 Iu)] 5,000 unit PO DAILY 10/29/18 [History] Magnesium Oxide [Mag-Ox] 400 mg PO DAILY 10/29/18 [History] Melatonin 5 mg PO HS 10/29/18 [History] Carvedilol 12.5 mg PO BID #0 10/30/18 [Rx] Spironolactone 25 mg PO DAILY #0 10/30/18 [Rx] Follow up Appointment(s)/Referral(s): [facility] [Primary Care [facility]] - 1-2 days Josue Hill MD [Family Provider] - 1 Week Activity/Diet/Wound Care/Special Instructions: Diet: Cardiac/diabetic Activity: As tolerated Discharge Disposition: HOME SELF-CARE
[2018-10-30 11:34] LABS: Glucose,Whole Blood 72 mg/dL (75-99)
[2018-10-30 11:42] VITALS: TEMP 97.9
[2018-10-30] MEDS: SACUBITRIL/VALSARTAN 24 MG-26 MG TABLET PO SCH (11:42)
[2018-10-30 12:30] VITALS: BP 102/63; PULSE 75
--- NOTE | 2018-10-30 16:35 | ECHOF ---
Referral Reason:LVF MEASUREMENTS -------- HEIGHT: 165.1 cm WEIGHT: 117.5 kg BP: 89/48 IVSd: 1.6 cm (0.6 - 1.1) LVIDd: 4.8 cm (3.9 - 5.3) LVPWd: 1.6 cm (0.6 - 1.1) IVSs: 2.3 cm LVIDs: 3.7 cm LVPWs: 1.8 cm RVIDd: 3.3 cm (< 3.3) LAESV Index (A-L): 27.50 ml/m Ao Diam: 2.9 cm (2.0 - 3.7) LA Diam: 4.0 cm (2.7 - 3.8) AV Cusp: 2.0 cm (1.5 - 2.6) MV E Alexander: 0.73 m/s MV DecT: 212 ms MV A Alexander: 0.48 m/s MV E/A Ratio: 1.53 FINDINGS -------- Sinus rhythm. This was a technically difficult study with suboptimal views. The left ventricular size is normal. There is moderate concentric left ventricular hypertrophy. T here is moderate global hypokinesis of LV . Overall left ventricular systolic function is mild-mode rately impaired with, an EF between 40 - 45 %. The diastolic filling pattern indicates impaired rel axation 8.98. The right ventricle is mild to moderately enlarged. Normal LA size by volume 22+/-6 ml/m2. The right atrium was not well visualized. xx ml of Lumason was utilized for enhancement of images. Interatrial and interventricular septum intact. The aortic valve was not well visualized. There is mild aortic valve sclerosis. There is no evide nce of aortic regurgitation. There is no evidence of aortic stenosis. The mitral valve is normal. No mitral regurgitation. Trace tricuspid regurgitation present. There is no evidence of pulmonary hypertension. The aortic root size is normal. IVC Not well visulized. There is no pericardial effusion. CONCLUSIONS -------- 1. Sinus rhythm. 2. This was a technically difficult study with suboptimal views. 3. The left ventricular size is normal. 4. There is moderate concentric left ventricular hypertrophy. 5. There is moderate global hypokinesis of LV . 6. The diastolic filling pattern indicates impaired relaxation 8.98.. 7. The right ventricle is mild to moderately enlarged. 8. Normal LA size by volume 22+/-6 ml/m2. 9. The right atrium was not well visualized. 10. xx ml of Lumason was utilized for enhancement of images. 11. Interatrial and interventricular septum intact. 12. The aortic valve was not well visualized. 13. There is mild aortic valve sclerosis. 14. There is no evidence of aortic regurgitation. 15. There is no evidence of aortic stenosis. 16. The mitral valve is normal. 17. No mitral regurgitation. 18. Trace tricuspid regurgitation present. 19. There is no evidence of pulmonary hypertension. 20. The aortic root size is normal. 21. IVC Not well visulized. 22. There is no pericardial effusion. EXTENSION EDGER: Jaclyn Vega RDCS
== END 2018-10-30 14:57 | disposition home or self-care (01) | DRG 309 ==
LOC: EC 09:07 → 3SCARD 12:01
PROVIDERS: ADMIT Internal Medicine; ATTEND Internal Medicine
DX: I49.3 Ventricular premature depolarization (principal); I50.22 Chronic systolic (congestive) heart failure; Z68.41 Body mass index [BMI] 40.0-44.9, adult; I11.0 Hypertensive heart disease with heart failure; E11.42 Type 2 diabetes mellitus with diabetic polyneuropathy; E11.65 Type 2 diabetes mellitus with hyperglycemia; E66.01 Morbid (severe) obesity due to excess calories; E83.42 Hypomagnesemia; E78.00 Pure hypercholesterolemia, unspecified; I95.9 Hypotension, unspecified; R07.89 Other chest pain; I25.5 Ischemic cardiomyopathy; E78.5 Hyperlipidemia, unspecified; F32.9 Major depressive disorder, single episode, unspecified; F41.9 Anxiety disorder, unspecified; K21.9 Gastro-esophageal reflux disease without esophagitis; K58.9 Irritable bowel syndrome, unspecified; Z79.4 Long term (current) use of insulin; Z79.899 Other long term (current) drug therapy; Z88.5 Allergy status to narcotic agent; Z88.8 Allergy status to other drugs, medicaments and biological substances; Z90.49 Acquired absence of other specified parts of digestive tract; Z87.891 Personal history of nicotine dependence; Z98.51 Tubal ligation status; Z80.51 Family history of malignant neoplasm of kidney; Z81.8 Family history of other mental and behavioral disorders; Z82.5 Family history of asthma and other chronic lower respiratory diseases; Z83.3 Family history of diabetes mellitus
CPT/HCPCS: 36415; 71046; 80053; 80061; 82550; 83690; 83735; 83880; 84443; 84484; 85025; 85379; 85610; 85730; 93005; 93306; 96365; 96366; 96367; 96376; 99291

== ENCOUNTER → 2018-11-25 | Outpatient (CLI) | payer OTHER ==
--- NOTE | 2018-11-25 16:49 | XR ---
Right ankle HISTORY: Pain medial right ankle 3 views of the right ankle Mild soft tissue swelling is noted. Joint spaces, alignment, bone mineralization are maintained. No f racture or dislocation. IMPRESSION: Mild soft tissue swelling.
== END | disposition home or self-care (01) ==
LOC: RADXRMAIN 14:43
PROVIDERS: ATTEND Nurse Practitioner
DX: M79.89 Other specified soft tissue disorders (principal)

== ENCOUNTER 2018-11-29 16:29 | Emergency (ER) | payer OTHER ==
[2018-11-29 17:19] VITALS: BP 119/59; PULSE 80; RESP 18; TEMP 98.3
--- NOTE | 2018-11-29 18:27 | XR ---
EXAMINATION TYPE: XR ankle complete RT DATE OF EXAM: 11/29/2018 COMPARISON: 11/25/2018 HISTORY: Swelling TECHNIQUE: 3 views FINDINGS: There is some soft tissue swelling around the ankle joint. I see no fracture nor dislocatio n. Ankle mortise is anatomic. Joint spaces are fairly normal. IMPRESSION: Mild soft tissue swelling. No fracture. No significant change.
--- NOTE | 2018-11-29 18:28 | XR ---
EXAMINATION TYPE: XR foot complete RT DATE OF EXAM: 11/29/2018 COMPARISON: NONE HISTORY: Pain and swelling TECHNIQUE: 3 views FINDINGS: Metatarsals appear intact. I see no fracture nor dislocation. Joint spaces are fairly cristian l. There are no erosions. IMPRESSION: Negative right foot exam.
--- NOTE | 2018-11-29 18:52 | ED ---
General Adult HPI - General Chief complaint: Extremity Problem,Nontraumatic Stated complaint: ankle pain/swelling Time Seen by Provider: 11/29/18 17:34 Source: patient, RN notes reviewed Mode of arrival: wheelchair Limitations: no limitations - History of Present Illness Initial comments: 43-year-old female presents for right ankle pain. States this has been ongoing for 2 weeks. States that she does not recall any injury. States she can walk on it but it is painful when she hits the medial malleolus against something. States she was seen for this previously and had negative x-rays. However she called her doctor today and they did not answer so she came back in because it was not getting better. At its to mild swelling to the medial malleolus. 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 Denies any severe foot pain. Denies any fevers or chills. Denies any erythema.Patient has no other complaints at this time including shortness of breath, chest pain, abdominal pain, nausea or vomiting, headache, or visual changes. - Related Data Home Medications Medication Instructions Recorded Confirmed Atorvastatin [Lipitor] 80 mg PO HS 06/25/15 10/29/18 Desvenlafaxine Succinate [Pristiq] 100 mg PO HS 06/25/15 10/29/18 Omeprazole 20 mg PO BID 06/25/15 10/29/18 clonazePAM [KlonoPIN] 1 mg PO HS 12/23/16 10/29/18 Insulin Glargine,Hum.rec.anlog 65 unit SQ HS 06/24/18 10/29/18 [Basaglmelanie Hudson U-100] Sacubitril/Valsartan [Entresto 24 1 tab PO BID 06/24/18 10/29/18 mg-26 mg Tablet] sitaGLIPtin PHOS/metFORMIN HCL 1 tab PO BID-W/MEALS 06/24/18 10/29/18 [Janumet 50-500 mg Tablet] Cholecalciferol [Vitamin D3 (25 5,000 unit PO DAILY 10/29/18 10/29/18 Mcg = 1000 Iu)] Magnesium Oxide [Mag-Ox] 400 mg PO DAILY 10/29/18 10/29/18 Melatonin 5 mg PO HS 10/29/18 10/29/18 Previous Rx's Medication Instructions Recorded Carvedilol 12.5 mg PO BID #0 07/13/19 Spironolactone 25 mg PO DAILY #0 10/30/18 Allergies Allergy/AdvReac Type Severity Reaction Status Date / Time codeine AdvReac Nausea & Verified 11/29/18 17:19 Vomiting quetiapine [From Seroquel] AdvReac "SLEEP Verified 11/29/18 17:19 EATING" risperidone [From Risperdal] AdvReac Hallucinati Verified 11/29/18 17:19 ons Review of Systems ROS Statement: Those systems with pertinent positive or pertinent negative responses have been documented in the HPI. ROS Other: All systems not noted in ROS Statement are negative. Past Medical History Past Medical History: Diabetes Mellitus, GERD/Reflux, Hyperlipidemia, Hypertension Additional Past Medical History / Comment(s): Nonischemic cardiomyopathy most likely related to previous illicit drug use and alcohol abuse, IDDM type II, neuropathy bilateral feet, bilateral carpal tunnel syndrome, IBS. History of Any Multi-Drug Resistant Organisms: None Reported Past Surgical History: Adenoidectomy, Section, Cholecystectomy, Orthopedic Surgery, Tubal Ligation, Uterine Ablation Additional Past Surgical History / Comment(s): Bilateral myringotomy/tubes, colonoscopy. Past Anesthesia/Blood Transfusion Reactions: No Reported Reaction Past Psychological History: Bipolar Smoking Status: Former smoker Past Alcohol Use History: None Reported Past Drug Use History: None Reported - Past Family History Father Family Medical History: Diabetes Mellitus Additional Family Medical History / Comment(s): Father in his 60s from renal cancer with metastatic disease. He also had history of mental health disease and diabetes. Mother Family Medical History: Asthma, Diabetes Mellitus Additional Family Medical History / Comment(s): Mother is living Sister(s) Additional Family Medical History / Comment(s): Patient has 2 sisters and one has history of bipolar disorder. Patient does not have any brothers. Son(s) Additional Family Medical History / Comment(s): Patient has 2 sons and one has ADHD and asthma. Patient has one daughter with no major medical problems. General Exam Limitations: no limitations General appearance: alert, in no apparent distress Head exam: Present: atraumatic, normocephalic, normal inspection Eye exam: Present: normal appearance, PERRL, EOMI. Absent: scleral icterus, conjunctival injection, periorbital swelling ENT exam: Present: normal exam, mucous membranes moist Neck exam: Present: normal inspection, full ROM. Absent: tenderness, meningismus, lymphadenopathy Respiratory exam: Present: normal lung sounds bilaterally. Absent: respiratory distress, wheezes, rales, rhonchi, stridor Cardiovascular Exam: Present: regular rate, normal rhythm, normal heart sounds. Absent: systolic murmur, diastolic murmur, rubs, gallop, clicks Extremities exam: Present: full ROM (Range motion of the right foot and ankle.), tenderness (Mild tenderness to the inferior medial malleolus. No other ankle tenderness. No lateral malleolus tenderness or foot tenderness including navicular and fifth metatarsal.), normal capillary refill (Capillary refill less than 2 seconds, DP pulse 2+ the right lower extremity.), joint swelling (Minimal edema present on the inferior medial malleolus.), other (Sensation intact in the right lower extremity.). Absent: pedal edema, calf tenderness (No calf tenderness, no swelling, no erythema or increased work.) Course Vital Signs 11/29/18 17:17 Temperature 98.3 F Pulse Rate 80 Respiratory 18 Rate Blood Pressure 119/59 O2 Sat by Pulse 97 Oximetry Medical Decision Making - Medical Decision Making 43-year-old female presents for right ankle pain. This has been ongoing for 2 weeks. No obvious injury. On exam patient has mild lower medial malleoli tenderness of the right ankle. Minimal edema localized in the area. No other tenderness or edema in the right foot or ankle. No calf tenderness edema erythema. X-rays of the ankle and foot are negative for acute fracture. Mild soft tissue swelling around the ankle joint. At this time I do not see an emergent cause for ankle pain. I do not suspect infection. Do not suspect occult fracture. I feel patient needs to follow up with orthopedics for further evaluation. She'll return here she has any worsening symptoms which were d iscussed with her. Disposition Clinical Impression: Ankle pain, right Disposition: HOME SELF-CARE Condition: Good Instructions (If sedation given, give patient instructions): Ankle Sprain (ED) Additional Instructions: Please take Motrin and Tylenol for pain. Keep foot elevated when at rest. Follow-up with orthopedics tomorrow. Return if you have any worsening symptoms. Is patient prescribed a controlled substance at d/c from ED?: No Referrals: [facility] [Primary Care Provider] - 1-2 days Khoa Wniston MD [STAFF PHYSICIAN] - 1-2 days Time of Disposition: 18:51
== END 2018-11-29 18:59 | disposition home or self-care (01) ==
LOC: EC 16:29
DX: M25.571 Pain in right ankle and joints of right foot (principal); M25.471 Effusion, right ankle; E11.40 Type 2 diabetes mellitus with diabetic neuropathy, unspecified; K21.9 Gastro-esophageal reflux disease without esophagitis; E78.5 Hyperlipidemia, unspecified; I11.9 Hypertensive heart disease without heart failure; I43 Cardiomyopathy in diseases classified elsewhere; F31.9 Bipolar disorder, unspecified; Z87.891 Personal history of nicotine dependence; Z79.4 Long term (current) use of insulin; Z79.899 Other long term (current) drug therapy; Z88.5 Allergy status to narcotic agent; Z88.8 Allergy status to other drugs, medicaments and biological substances
CPT/HCPCS: 99283

== ENCOUNTER → 2018-12-13 | Outpatient (CLI) | payer OTHER ==
--- NOTE | 2018-12-14 05:49 | MR ---
EXAMINATION TYPE: MR ankle RT wo con DATE OF EXAM: 12/13/2018 COMPARISON: None HISTORY: Rt ankle pain x 2 mos, no trauma Standard multiplanar, multisequence MRI departmental protocol Multiplanar, multisequence images of the right ankle were acquired. FINDINGS: The Achilles tendon is intact. Plantar fascia appears intact. Ankle mortise is anatomic. Th e collateral ligaments appear intact. The medial and lateral flexor tendons of the ankle appear intact. There is no evidence of a fracture. Joint spaces are fairly well-maintained. There is subcutaneous edema around the medial aspect of the distal tibia. There is minimal ankle joint effusion. There is no evidence of focal bone destruction. There is small amount of fluid around the medial flexor tendons. IMPRESSION: Subcutaneous edema over the medial distal tibia. Small ankle joint effusion consistent with nonspecific synovitis. No fracture. No evidence of ligamen t or tendon tear. Peritendinous fluid on the medial aspect of the ankle also consistent with synoviti s.
== END | disposition home or self-care (01) ==
LOC: RADMRIMAIN 15:19
PROVIDERS: ATTEND Orthopaedic Surgery
DX: M25.471 Effusion, right ankle (principal)

== ENCOUNTER → 2020-02-08 | Outpatient (CLI) | payer OTHER ==
--- NOTE | 2020-02-08 16:58 | XR ---
Right hip HISTORY: Right hip pain 2 views of the right hip Some questionable sclerotic foci within the right femoral head, right ischium. The joint spaces and a lignment are maintained. Calcification is present at the insertion of the gluteus tendon at the great er trochanter. There is overlying artifact. No fracture or dislocation. IMPRESSION: Correlate for possible calcific tendinitis, hip MRI may be of benefit. Questionable scler otic foci could be related to overlying artifact, consider bone scan as indicated.
== END | disposition home or self-care (01) ==
LOC: RADXRMAIN 12:22
PROVIDERS: ATTEND Family Medicine
DX: M25.551 Pain in right hip (principal)
CPT/HCPCS: 73502

== ENCOUNTER → 2020-10-24 | Outpatient (CLI) | payer BC | END | disposition home or self-care (01) | CPT/HCPCS: 72100 ==

== ENCOUNTER 2020-11-12 22:23 | Emergency (ER) | payer BC ==
[2020-11-12 22:37] VITALS: BP 120/80; PULSE 70; RESP 16; TEMP 97.6
--- NOTE | 2020-11-12 22:50 | ED ---
Psych HPI - General Chief Complaint: Psychiatric Symptoms Stated Complaint: Mental Health Time Seen by Provider: 11/12/20 22:40 Source: patient, EMS, RN notes reviewed, old records reviewed Mode of arrival: EMS Limitations: no limitations - History of Present Illness Initial Comments: This is a 45-year-old female D to the ER F for evaluation today. The patient presents for difficulties in life, increased life stressors with history of drug abuse. Patient has no significant thoughts of killing herself and does have thoughts rehabilitation. But she is severely depressed and presents for mental health evaluation MD Complaint: suicidal ideation, feels depressed -: days(s) Associated Psychiatric Symptoms: depression, suicidal ideation History of same: Yes Quality: changing over time, getting worse Improves With: none Worsens With: none Context: not taking psychiatric medications, significant life stressor Associated Symptoms: denies other symptoms Treatments Prior to Arrival: placed on mental health hold If Self Harm: admits thoughts of self harm - Related Data Home Medications Medication Instructions Recorded Confirmed Atorvastatin [Lipitor] 80 mg PO HS 06/25/15 10/29/18 Desvenlafaxine Succinate [Pristiq] 100 mg PO HS 06/25/15 10/29/18 Omeprazole 20 mg PO BID 06/25/15 10/29/18 clonazePAM [KlonoPIN] 1 mg PO HS 12/23/16 10/29/18 Insulin Glargine,Hum.rec.anlog 65 unit SQ HS 06/24/18 10/29/18 [Basaglar Kwikpen U-100] Sacubitril/Valsartan [Entresto 24 1 tab PO BID 06/24/18 10/29/18 mg-26 mg Tablet] sitaGLIPtin PHOS/metFORMIN HCL 1 tab PO BID-W/MEALS 06/24/18 10/29/18 [Janumet 50-500 mg Tablet] Cholecalciferol [Vitamin D3 (25 5,000 unit PO DAILY 10/29/18 10/29/18 Mcg = 1000 Iu)] Magnesium Oxide [Mag-Ox] 400 mg PO DAILY 10/29/18 10/29/18 Melatonin 5 mg PO HS 10/29/18 10/29/18 Previous Rx's Medication Instructions Recorded Spironolactone 25 mg PO DAILY #0 10/30/18 carvediloL [Carvedilol] 12.5 mg PO BID #0 10/30/18 Allergies Allergy/AdvReac Type Severity Reaction Status Date / Time codeine AdvReac Nausea & Verified 11/29/18 17:19 Vomiting quetiapine [From Seroquel] AdvReac "SLEEP Verified 11/29/18 17:19 EATING" risperidone [From Risperdal] AdvReac Hallucinati Verified 11/29/18 17:19 ons Review of Systems ROS Statement: Those systems with pertinent positive or pertinent negative responses have been documented in the HPI. ROS Other: All systems not noted in ROS Statement are negative. Past Medical History Past Medical History: Diabetes Mellitus, GERD/Reflux, Hyperlipidemia, Hypertension Additional Past Medical History / Comment(s): Nonischemic cardiomyopathy most likely related to previous illicit drug use and alcohol abuse, IDDM type II, neuropathy bilateral feet, bilateral carpal tunnel syndrome, IBS. History of Any Multi-Drug Resistant Organisms: None Reported Past Surgical History: Adenoidectomy, Section, Cholecystectomy, Orthopedic Surgery, Tubal Ligation, Uterine Ablation Additional Past Surgical History / Comment(s): Bilateral myringotomy/tubes, colonoscopy. Past Anesthesia/Blood Transfusion Reactions: No Reported Reaction Past Psychological History: Bipolar Smoking Status: Former smoker Past Alcohol Use History: None Reported Past Drug Use History: None Reported - Past Family History Father Family Medical History: Diabetes Mellitus Additional Family Medical History / Comment(s): Father in his 60s from renal cancer with metastatic disease. He also had history of mental health disease and diabetes. Mother Family Medical History: Asthma, Diabetes Mellitus Additional Family Medical History / Comment(s): Mother is living Sister(s) Additional Family Medical History / Comment(s): Patient has 2 sisters and one has history of bipolar disorder. Patient does not have any brothers. Son(s) Additional Family Medical History / Comment(s): Patient has 2 sons and one has ADHD and asthma. Patient has one daughter with no major medical problems. General Exam Limitations: no limitations General appearance: alert, in no apparent distress Head exam: Present: atraumatic, normocephalic, normal inspection Eye exam: Present: normal appearance, PERRL, EOMI. Absent: scleral icterus, conjunctival injection, periorbital swelling ENT exam: Present: normal exam, mucous membranes moist Neck exam: Present: normal inspection. Absent: tenderness, meningismus, lymphadenopathy Respiratory exam: Present: normal lung sounds bilaterally. Absent: respiratory distress, wheezes, rales, rhonchi, stridor Cardiovascular Exam: Present: regular rate, normal rhythm, normal heart sounds. Absent: systolic murmur, diastolic murmur, rubs, gallop, clicks GI/Abdominal exam: Present: soft, normal bowel sounds. Absent: distended, tenderness, guarding, rebound, rigid Extremities exam: Present: normal inspection, full ROM, normal capillary refill. Absent: tenderness, pedal edema, joint swelling, calf tenderness Back exam: Present: normal inspection Neurological exam: Present: alert, oriented X3, CN II-XII intact Psychiatric exam: Present: normal affect, normal mood Skin exam: Present: warm, dry, intact, normal color. Absent: rash Course Vital Signs 11/12/20 22:26 Temperature 97.6 F Pulse Rate 70 Respiratory 16 Rate Blood Pressure 120/80 O2 Sat by Pulse 96 Oximetry - Reevaluation(s) Reevaluation #1: 11/13/20 01:50 medical record is reviewed 11/13/20 01:51 Medically clear for psychiatric evaluation Reevaluation #2: 11/13/20 01:50 Patient is seen by psychiatry here in the ER Medical Decision Making - Medical Decision Making 45 female seen and evaluated psychiatry, patient deemed stable for discharge home Disposition Clinical Impression: Acute anxiety, Depression, Adjustment reaction of adult life Disposition: HOME SELF-CARE Condition: Fair Instructions (If sedation given, give patient instructions): Depression (ED) Is patient prescribed a controlled substance at d/c from ED?: No Referrals: Cristela Fisher MD [Primary Care Provider] - 1-2 days
== END 2020-11-13 01:55 | disposition home or self-care (01) ==
LOC: EC 22:23
DX: F43.22 Adjustment disorder with anxiety (principal); F41.8 Other specified anxiety disorders; E11.9 Type 2 diabetes mellitus without complications; I10 Essential (primary) hypertension; E78.5 Hyperlipidemia, unspecified; K21.9 Gastro-esophageal reflux disease without esophagitis; Z87.891 Personal history of nicotine dependence; Z88.5 Allergy status to narcotic agent; Z88.8 Allergy status to other drugs, medicaments and biological substances; Z79.4 Long term (current) use of insulin; Z79.899 Other long term (current) drug therapy
CPT/HCPCS: 82075; 99284

== ENCOUNTER → 2021-03-12 | Outpatient (CLI) | payer BC ==
[2021-03-12 23:56] LABS: African American GFR (CKD) 122.1 (60.0-200.0); Anion Gap 15.2 mmol/L (10.00-18.00); BUN/Creat Ratio 26.14 Ratio (12.00-20.00); Blood Urea Nitrogen 18.3 mg/dL (9.0-27.0); Calcium 9.9 mg/dL (8.7-10.3); Carbon Dioxide 25.8 mmol/L (20.0-27.5); Non-African American GFR(CKD) 105.4 (60.0-200.0); Potassium 3.8 mmol/L (3.5-5.5)
== END | disposition home or self-care (01) ==
LOC: LABWHC1 15:48
PROVIDERS: ATTEND Nurse Practitioner Adult Health
DX: I10 Essential (primary) hypertension (principal)
CPT/HCPCS: 36415; 80048

== ENCOUNTER → 2023-06-30 | Outpatient (CLI) | payer BC ==
--- NOTE | 2023-07-01 18:32 | MM ---
Reason for Exam: Screening (asymptomatic). Last mammogram was performed 6 year(s) and 5 month(s) ago. Patient History: Menarche at age 12. First Full-Term at age 22. Premenopausal. Hormonal Contraceptives for 6 months. Risk Values: Elin 5 year model risk: 0.8%. NCI Lifetime model risk: 9.3%. Prior Study Comparison: 02/04/2017 Bilateral Screening Mammogram, [facility]. 02/17/2017 Left Diagnostic Mammogram, [facility]. 08/05/2017 Left Diagnostic Mammogram, [facility]. Tissue Density: There are scattered areas of fibroglandular density. Findings: Analyzed By CAD. Chronic nodularity on the right. There is no suspicious group of microcalcifications or new suspicious mass in either breast. Overall Assessment: Benign, BI-RAD 2 Management: Screening Mammogram of both breasts in 1 year. . Patient should continue monthly self-breast exams. A clinical breast exam by your physician is recommended on an annual basis. This exam should not preclude additional follow-up of suspicious palpable abnormalities. Note on Elin scores and lifetime risk: 1. A Elin score greater than 3% is considered moderate risk. If this is the case, consider specialist referral to assess eligibility for a risk reducing agent. 2. If overall lifetime risk for the development of breast cancer is 20% or higher, the patient may qualify for future screening with alternating mammogram and breast MRI. Electronically signed and approved by: Genevieve Barroso M.D. Radiologist
== END | disposition home or self-care (01) ==
LOC: RADMAMWWP 15:53
PROVIDERS: ATTEND Family Medicine
DX: Z12.31 Encounter for screening mammogram for malignant neoplasm of breast (principal)
CPT/HCPCS: 77063; 77067

== ENCOUNTER 2023-09-02 08:08 | Day surgery (SDC) | payer BC ==
[2023-08-26 16:01] VITALS: BMI 34.0
[~2023-09-02 08:08] MED LIST: LIDOCAINE 1% (10MG/ML) FOR IV START INTRADERMA PRN
[2023-09-02] MEDS: LACTATED RINGERS 1,000 ML IV SCH (08:45)
[2023-09-02 08:48] LABS: Glucose,Whole Blood 124 mg/dL (70-110)
[2023-09-02 08:58] VITALS: TEMP 97
[2023-09-02] MEDS ORDERED: PROPOFOL 10 MG/ML 20 ML VIAL IV ONE (09:14)
--- NOTE | 2023-09-02 09:39 | P.PCN ---
Date of Procedure: 09/02/23 Procedure(s) Performed: BRIEF HISTORY: Patient is a 47-year-old pleasant white female scheduled for an elective colonoscopy as a part of screening for colon cancer. PROCEDURE PERFORMED: Colonoscopy. PREOPERATIVE DIAGNOSIS: Screening for colon cancer. IV sedation per Anesthesia. PROCEDURE: After informed consent was obtained, the patient, was brought into the endoscopy unit. IV sedation was administered by Anesthesia under continuous monitoring. Digital rectal examination was normal. Initially the Olympus CF-160 flexible video colonoscope was then inserted in the rectum, gradually advanced into the cecum without any difficulty. Careful examination was performed as the scope was gradually being withdrawn. Ileocecal valve and the appendiceal orifice were visualized and appeared normal. Prep was excellent. Mucosa of the cecum, ascending colon, transverse colon, descending colon, sigmoid colon, and rectum appeared normal. Retroflexion was performed in the rectum and no lesions were seen. The patient tolerated the procedure well. IMPRESSION: Normal-appearing colon from rectum to cecum with no evidence of colorectal neoplasia. RECOMMENDATIONS: Findings of this examination were discussed with the patient as well as her family. She was advised to have a repeat screening colonoscopy in 10 years..
[2023-09-02 10:14] LABS: Glucose,Whole Blood 115 mg/dL (70-110)
[2023-09-02 10:52] VITALS: BP 110/68; PULSE 60; RESP 17
== END 2023-09-02 10:23 | disposition home or self-care (01) ==
LOC: ORWHC2ENDO 08:08
PROVIDERS: ATTEND Internal Medicine Gastroenterology
DX: Z12.11 Encounter for screening for malignant neoplasm of colon (principal); I10 Essential (primary) hypertension; E78.5 Hyperlipidemia, unspecified; M19.90 Unspecified osteoarthritis, unspecified site; K21.9 Gastro-esophageal reflux disease without esophagitis; K58.9 Irritable bowel syndrome, unspecified; E11.42 Type 2 diabetes mellitus with diabetic polyneuropathy; Z79.899 Other long term (current) drug therapy; Z79.84 Long term (current) use of oral hypoglycemic drugs; Z88.5 Allergy status to narcotic agent; Z88.8 Allergy status to other drugs, medicaments and biological substances; Z90.49 Acquired absence of other specified parts of digestive tract
CPT/HCPCS: 81025; 45378; J2704

== ENCOUNTER → 2024-05-16 | Outpatient (CLI) | payer BC, OTHER | LOC: LABWHC1 15:02 | PROVIDERS: ATTEND Family Medicine | DX: Z53.9 Procedure and treatment not carried out, unspecified reason (principal) ==